=== PATIENT | female | born 1945 | race Caucasian/White ===

== ENCOUNTER 2021-09-19 08:54 | Day surgery (SDC) | payer MEDICARE, OTHER ==
[2021-09-19] MEDS ORDERED: Dexamethasone 4 MG/ML SDV IV ONE (08:55)
[2021-09-19] MEDS ORDERED: Sodium Chloride 0.9% 10 ML Syringe IV ONE (08:55)
[2021-09-19] MEDS ORDERED: Midazolam 1 MG/ML 2 ML SDV IV ONE (08:55)
[2021-09-19] MEDS ORDERED: Cataract Ophth Solution EYELF ONE (09:00)
[2021-09-19] MEDS ORDERED: Povidone-Iodine 5% Sterile Ophth Soln 30 ML Bottle EYELF ONE ×2 (09:00→09:56)
[2021-09-19] MEDS ORDERED: Tropicamide 1% Ophth Soln 15 ML Bottle EYELF ONE (09:00)
[2021-09-19] MEDS ORDERED: Timolol Maleate 0.5% Ophth Soln 5 ML Bottle EYELF ONE (09:00)
[2021-09-19] MEDS ORDERED: Ondansetron 4 MG/2 ML SDV IVPUSH PRN (09:00)
[2021-09-19] MEDS ORDERED: Moxifloxacin 0.5% Ophth Soln 3 ML Bottle EYELF ONE (09:00)
[2021-09-19] MEDS ORDERED: Phenylephrine 10% Ophth Soln 5 ML Bot EYELF ONE (09:00)
[2021-09-19] MEDS ORDERED: Acetaminophen 325 MG Tab PO PRN (09:00)
[2021-09-19] MEDS ORDERED: Proparacaine 0.5% Ophth Soln 15 ML Bottle EYELF ONE (09:00)
[2021-09-19] MEDS ORDERED: Acetaminophen/Codeine 300-30 MG Tab PO PRN (09:00)
[2021-09-19] MEDS ORDERED: Dexamethasone/Tobramycin 0.1-0.3% Ophth Oint 3.5 GM Tube EYELF ONE (09:56)
[2021-09-19] MEDS ORDERED: Tetracaine HCl/PF 0.5% 4 ML Bottle EYELF ONE (09:56)
[2021-09-19] MEDS ORDERED: Diclofenac Sodium 0.1% Ophth Soln 5 ML Bottle EYELF ONE (09:56)
[2021-09-19] MEDS ORDERED: Chondroitin Sulfate/Hyaluronate Sodium Ophth Inj 0.75 ML Syringe EYELF ONE (09:56)
[2021-09-19] MEDS ORDERED: Lidocaine 1% 30 ML SDV ONE (09:56)
[2021-09-19] MEDS ORDERED: Apraclonidine 0.5% Ophth Soln 5 ML Bot EYELF ONE (09:56)
[2021-09-19] MEDS ORDERED: Balanced Salt Solution Ophth Irrig 500 ML Bottle IOCULAR ONE (09:57)
[2021-09-19] MEDS ORDERED: Vancomycin 500 MG SDV EYELF ONE (09:57)
[2021-09-19 12:12] VITALS: BP 137/50; PULSE 46
== END 2021-09-19 11:01 | disposition home or self-care (01) ==
LOC: DL.SDS 08:54
PROVIDERS: ATTEND Ophthalmology
DX: E11.36 Type 2 diabetes mellitus with diabetic cataract (principal); H25.812 Combined forms of age-related cataract, left eye; I25.10 Atherosclerotic heart disease of native coronary artery without angina pectoris; I12.9 Hypertensive chronic kidney disease with stage 1 through stage 4 chronic kidney disease, or unspecified chronic kidney disease; E11.22 Type 2 diabetes mellitus with diabetic chronic kidney disease; N18.31 Chronic kidney disease, stage 3a; E78.5 Hyperlipidemia, unspecified; Z98.890 Other specified postprocedural states; Z87.891 Personal history of nicotine dependence; Z79.899 Other long term (current) drug therapy; Z79.82 Long term (current) use of aspirin; Z88.2 Allergy status to sulfonamides; Z88.8 Allergy status to other drugs, medicaments and biological substances; Z88.7 Allergy status to serum and vaccine
CPT/HCPCS: 00142; 66984; A9270; J1100; J2250; J3370; V2632

== ENCOUNTER 2021-10-03 08:51 | Day surgery (SDC) | payer MEDICARE, OTHER ==
[2021-10-03] MEDS ORDERED: Sodium Chloride 0.9% 10 ML Syringe IV ONE (08:52)
[2021-10-03] MEDS ORDERED: Dexamethasone 4 MG/ML SDV IV ONE (08:52)
[2021-10-03] MEDS ORDERED: Midazolam 1 MG/ML 2 ML SDV IV ONE (08:52)
[2021-10-03] MEDS ORDERED: Tropicamide 1% Ophth Soln 15 ML Bottle EYERT ONE (09:00)
[2021-10-03] MEDS ORDERED: Moxifloxacin 0.5% Ophth Soln 3 ML Bottle EYERT ONE (09:00)
[2021-10-03] MEDS ORDERED: Sodium Chloride 0.9% 10 ML Syringe FLUSH PRN (09:00)
[2021-10-03] MEDS ORDERED: Ondansetron 4 MG/2 ML SDV IVPUSH PRN (09:00)
[2021-10-03] MEDS ORDERED: Povidone-Iodine 5% Sterile Ophth Soln 30 ML Bottle EYERT ONE ×2 (09:00→10:06)
[2021-10-03] MEDS ORDERED: Acetaminophen 325 MG Tab PO PRN (09:00)
[2021-10-03] MEDS ORDERED: Phenylephrine 10% Ophth Soln 5 ML Bot EYERT ONE (09:00)
[2021-10-03] MEDS ORDERED: Timolol Maleate 0.5% Ophth Soln 5 ML Bottle EYERT ONE (09:00)
[2021-10-03] MEDS ORDERED: Proparacaine 0.5% Ophth Soln 15 ML Bottle EYERT ONE (09:00)
[2021-10-03] MEDS ORDERED: Cataract Ophth Solution EYERT ONE (09:00)
[2021-10-03] MEDS ORDERED: Acetaminophen/Codeine 300-30 MG Tab PO PRN (09:00)
[2021-10-03] MEDS ORDERED: Tetracaine HCl/PF 0.5% 4 ML Bottle EYERT ONE (10:06)
[2021-10-03] MEDS ORDERED: Lidocaine 1% 30 ML SDV ONE (10:06)
[2021-10-03] MEDS ORDERED: Apraclonidine 0.5% Ophth Soln 5 ML Bot EYERT ONE (10:07)
[2021-10-03] MEDS ORDERED: Tobramycin 0.3% Ophth Oint 3.5 GM Tube EYERT ONE (10:08)
[2021-10-03] MEDS ORDERED: Diclofenac Sodium 0.1% Ophth Soln 5 ML Bottle EYERT ONE (10:08)
[2021-10-03] MEDS ORDERED: Balanced Salt Solution Ophth Irrig 500 ML Bottle IOCULAR ONE (10:08)
[2021-10-03] MEDS ORDERED: Chondroitin Sulfate/Hyaluronate Sodium Ophth Inj 0.75 ML Syringe EYERT ONE (10:08)
[2021-10-03] MEDS ORDERED: Vancomycin 500 MG SDV EYERT ONE (10:09)
[2021-10-04 06:23] VITALS: BP 113/58; PULSE 43
== END 2021-10-03 11:10 | disposition home or self-care (01) ==
LOC: DL.SDS 08:51
PROVIDERS: ATTEND Ophthalmology
DX: E11.36 Type 2 diabetes mellitus with diabetic cataract (principal); H25.811 Combined forms of age-related cataract, right eye; I25.10 Atherosclerotic heart disease of native coronary artery without angina pectoris; E78.5 Hyperlipidemia, unspecified; E11.22 Type 2 diabetes mellitus with diabetic chronic kidney disease; I12.9 Hypertensive chronic kidney disease with stage 1 through stage 4 chronic kidney disease, or unspecified chronic kidney disease; N18.31 Chronic kidney disease, stage 3a; Z98.890 Other specified postprocedural states; Z87.891 Personal history of nicotine dependence; Z79.899 Other long term (current) drug therapy; Z79.82 Long term (current) use of aspirin; Z88.2 Allergy status to sulfonamides; Z88.8 Allergy status to other drugs, medicaments and biological substances; Z88.7 Allergy status to serum and vaccine
CPT/HCPCS: 00142; A9270-GY; J1100; J2250; J3370; V2632